=== PATIENT | female | born 1985 | race Two or more races ===

== ENCOUNTER 2021-08-12 13:40 | Emergency (ER) | payer OTHER ==
[~2021-08-12] VITALS: Ht 157.5 cm; Wt 66.7 kg
[2021-08-12] MEDS ORDERED: TENORMIN25 MG PO (13:52)
[2021-08-12] MEDS ORDERED: ZYPREXA5 MG PO (13:53)
[2021-08-12] MEDS ORDERED: ATIVAN1 M1 PO (13:53)
[2021-08-12] MEDS ORDERED: PROTONIX40 MG PO (15:01)
== END 2021-08-12 15:08 | disposition home or self-care (01) ==
LOC: ER 13:40
DX: K29.70 Gastritis, unspecified, without bleeding (principal)